=== PATIENT | female | born 1970 | race African-American/Black ===

== ENCOUNTER 2016-11-26 08:40 | Emergency (ER) | payer OTHER ==
[~2016-11-26 08:40] MED LIST: AUGMENTIN875 MG PO; BACTRIM DS TABL1 TA1 PO; DARVOCET-N 1001 TAB PO; FLEXERIL10 MG PO; IBUPROFEN; MOTRIN600 MG PO
== END 2016-11-26 10:00 | disposition left against medical advice (07) ==
LOC: CED 08:40
DX: Z53.21 Procedure and treatment not carried out due to patient leaving prior to being seen by health care provider (principal)